=== PATIENT | female | born 1980 | race Caucasian/White ===

== ENCOUNTER 2018-04-30 10:56 | Emergency (ER) | payer MEDICAID ==
[2018-04-30] MEDS ORDERED: Ondansetron 4 MG/2 ML SDV IVPUSH ONE (11:08)
[2018-04-30] MEDS ORDERED: Sodium Chloride 0.9% 10 ML Syringe FLUSH PRN (11:08)
[2018-04-30] MEDS ORDERED: Ketorolac 30 MG/ML SDV IVPUSH ONE (11:10)
[2018-04-30] MEDS ORDERED: HYDROmorphone 0.5 MG/0.5 ML SYRINGE IVPUSH ONE ×2 (11:10→13:43)
[2018-04-30] MEDS ORDERED: Sodium Chloride 0.9% 1,000 ML IV SCH (11:15)
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
[2018-04-30 14:46] VITALS: BP 102/60
--- NOTE | 2018-05-01 11:26 | CT ---
CT abdomen and pelvis Technique: Multiple axial sections were obtained from above the dome of the diaphragm inferiorly through the pubic symphysis. Intravenous and oral contrast was not utilized. Study has been performed as a ureteral stone protocol. Findings: 1.1 cm obstructing stone seen within the distal right ureter causing severe proximal hydronephrosis. No other abnormal calcifications seen along the course of the ureters or within the kidneys. Visualized lung bases show nothing acute. Noncontrast appearance of the liver and spleen appears within normal limits. Adrenal glands show no nodule. Pancreas is within normal limits. Aorta shows no aneurysmal dilatation. No retroperitoneal adenopathy or mesenteric abnormalities are seen. No pelvic mass or adenopathy is seen. Appendix is seen and appears normal in size. Slight increased stool is seen throughout the colon. Bone window settings were reviewed which appear within normal limits for the patient's age. Impression: 1. 1.1 cm obstructing stone within the distal right ureter causing severe proximal hydronephrosis. 2. Mild increased stool throughout colon. 3. No additional abnormality is seen on noncontrast CT study of the abdomen and pelvis performed as a ureteral stone protocol. Diagnostic code #3 Agree with preliminary report issued by [employer] ([employer] preliminary report dictated on 04/30/18, 1:46 PM Central Time)
== END 2018-04-30 14:48 | disposition home or self-care (01) ==
LOC: JD.ED 10:56
DX: N13.2 Hydronephrosis with renal and ureteral calculous obstruction (principal); F43.10 Post-traumatic stress disorder, unspecified; F31.9 Bipolar disorder, unspecified; F32.9 Major depressive disorder, single episode, unspecified; Z88.5 Allergy status to narcotic agent; Z88.8 Allergy status to other drugs, medicaments and biological substances; Z79.899 Other long term (current) drug therapy
CPT/HCPCS: 36415; 74176; 80053; 81001; 83690; 84703; 85025; 87086; 96361; 96374; 96375; 96376; 99284; J1170; J1885; J2405; J7040; J7050

== ENCOUNTER 2018-07-22 16:07 | Emergency (ER) | payer MEDICAID ==
[2018-07-22] MEDS ORDERED: Sodium Chloride 0.9% 1,000 ML IV ONE (16:40)
[2018-07-22] MEDS ORDERED: Sodium Chloride 0.9% 10 ML Syringe FLUSH PRN (16:40)
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
[2018-07-22 19:04] VITALS: BP 113/74
--- NOTE | 2018-07-25 10:10 | CT ---
CT abdomen and pelvis Technique: Multiple axial sections were obtained from above the dome of the diaphragm inferiorly through the pubic symphysis. Intravenous and oral contrast not utilized. Study has been performed as a ureteral stone protocol. Comparison: Prior CT abdomen and pelvis exam of 04/30/18. Findings: Previous obstructing distal right ureteral stone is no longer seen. No abnormal calcifications are identified along the course of the ureters. Visualized lung bases are clear. Noncontrast appearance of the liver and spleen appear within normal limits. Adrenal glands show no nodule. Pancreas is within normal limits. Gallbladder contains no calcified gallstones. Kidneys show no abnormal calcifications. The aorta shows no aneurysmal dilatation. No retroperitoneal adenopathy or mesenteric abnormalities are seen. No pelvic mass or adenopathy is seen. Cyst identified within the right side of the pelvis measuring about 3.5 cm in size most likely ovarian in etiology. Appendix is seen and is normal in size. No free fluid or inflammatory change is seen. Slight increased stool seen throughout colon. Bone window settings were reviewed which appear within normal limits for the patient's age. Small fat-containing umbilical hernia is noted. Impression: 1. Previous right ureteral stone is no longer present. No renal calculi or ureteral stone is seen on current exam. 2. 3.5 cm cyst most likely ovarian in etiology within the right pelvis. 3. Other incidental findings. Diagnostic code #2 I agree with preliminary report from [facility], finalized at 07/22/18, 6:52 PM Central Time
== END 2018-07-22 18:55 | disposition home or self-care (01) ==
LOC: JD.ED 16:07 → EEVIPCON 16:07 → JD.ED 18:55
DX: N83.201 Unspecified ovarian cyst, right side (principal); Z88.5 Allergy status to narcotic agent; Z88.8 Allergy status to other drugs, medicaments and biological substances
CPT/HCPCS: 36415; 74176; 80053; 81001; 84703; 85025; 96360; 99283; J7040; J7050

== ENCOUNTER 2018-11-27 18:25 | Emergency (ER) | payer MEDICAID ==
[2018-11-27 18:37] VITALS: BP 105/76
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
[2018-11-27] MEDS ORDERED: Ketorolac 15 MG/ML SDV IVPUSH ONE (19:23)
[2018-11-27] MEDS ORDERED: Lactated Ringers 1,000 ML IV SCH (19:30)
[2018-11-27] MEDS ORDERED: Ondansetron 4 MG/2 ML SDV IVPUSH ONE (19:41)
--- NOTE | 2018-11-27 20:30 | CT ---
CT abdomen and pelvis Technique: Multiple axial sections through the abdomen were obtained from above the dome of the diaphragm inferiorly through the pubic symphysis. Intravenous and oral contrast not utilized. Study was performed as a ureteral stone protocol. Comparison: Prior renal stone CT exam of 07/22/18. Findings: Kidneys show no abnormal calcifications. No ureteral dilatation or ureteral stone is seen. Visualized lung bases are clear. Noncontrast appearance of the liver appears within normal limits. Spleen appears within normal limits. Adrenal glands show no nodule. Pancreas appears within normal limits. Gallbladder contains no calcified gallstones. Aorta shows no aneurysm. No retroperitoneal adenopathy or mesenteric abnormalities are seen. Thinning of the rectus fascia is seen with bulging of the abdominal wall at the level of the umbilicus. Slightly septated cyst is noted within the left ovary measuring 4.5 cm. Appendix is seen which is normal in size. No free fluid or inflammatory change is seen. Bone window settings were reviewed which appear within normal limits for the patient's age. Impression: 1. 4.5 cm septated cyst within the left ovary. This is an interval change from prior CT exam. Recommend follow-up ultrasound in Mar, 2019 2. No ureteral calculi, ureteral dilatation or renal calculi are seen. 3. Appendix is seen and is normal in size. 4. Other incidental findings as described above. Diagnostic code #3
== END 2018-11-27 21:15 | disposition home or self-care (01) ==
LOC: JD.ED 18:25
DX: S39.011A Strain of muscle, fascia and tendon of abdomen, initial encounter (principal); S29.011A Strain of muscle and tendon of front wall of thorax, initial encounter; Z88.5 Allergy status to narcotic agent; Z88.8 Allergy status to other drugs, medicaments and biological substances; X58.XXXA Exposure to other specified factors, initial encounter
CPT/HCPCS: 36415; 74176; 80048; 81001; 81025; 85007; 85027; 96361; 96374; 96375; 99284; J1885; J2405; J7120

== ENCOUNTER 2021-12-15 13:28 | Emergency (ER) | payer MEDICAID, SELFPAY ==
[2021-12-15 14:21] VITALS: BP 132/96; PULSE 111
[2021-12-15] MEDS ORDERED: Sodium Chloride 0.9% 1,000 ML IV STA (16:02)
[2021-12-15] MEDS ORDERED: Ondansetron 4 MG/2 ML SDV IVPUSH ONE (16:02)
[2021-12-15] MEDS ORDERED: Ketorolac 30 MG/ML SDV IVPUSH ONE (16:02)
[2021-12-15] MEDS ORDERED: diphenhydrAMINE 50 MG/ML SDV IVPUSH ONE (16:03)
[2021-12-15] MEDS ORDERED: HYDROmorphone 0.5 MG/0.5 ML Syringe IVPUSH ONE (16:04)
[2021-12-15] MEDS ORDERED: Acetaminophen 325 MG Tab PO ONE (19:47)
== END 2021-12-15 20:40 | disposition home or self-care (01) ==
LOC: JD.ED 13:28
DX: G43.909 Migraine, unspecified, not intractable, without status migrainosus (principal); Z88.5 Allergy status to narcotic agent; Z88.8 Allergy status to other drugs, medicaments and biological substances
CPT/HCPCS: 96374; 96375; 99283; J1170; J1200; J1885; J2405; J7030

== ENCOUNTER 2022-07-27 11:07 | Emergency (ER) | payer MEDICAID, SELFPAY ==
[2022-07-27] MEDS ORDERED: Sodium Chloride 0.9% 10 ML Syringe FLUSH PRN (11:59)
[2022-07-27] MEDS ORDERED: Sodium Chloride 0.9% 1,000 ML IV ONE (11:59)
[2022-07-27 13:31] LABS: ESTIMATED GFR 113 mL/min (>60)
[2022-07-27 15:44] VITALS: BP 128/92; PULSE 72
== END 2022-07-27 15:56 | disposition home or self-care (01) ==
LOC: JD.ED 11:07
DX: N93.9 Abnormal uterine and vaginal bleeding, unspecified (principal); Z88.6 Allergy status to analgesic agent; Z88.8 Allergy status to other drugs, medicaments and biological substances; Z79.899 Other long term (current) drug therapy
CPT/HCPCS: 36415; 76856; 80053; 81001; 84703; 85025; 86140; 96360; 99284; A9270; J3490; J7030

== ENCOUNTER 2023-01-21 20:19 | Emergency (ER) | payer MEDICAID ==
[2023-01-21 20:37] VITALS: BP 127/87; PULSE 100
[2023-01-21] MEDS ORDERED: HYDROmorphone 1 MG/ML Syringe IVPUSH ONE (22:47)
[2023-01-21] MEDS ORDERED: Metoclopramide 10 MG/2 ML SDV IVPUSH ONE (22:47)
[2023-01-21] MEDS ORDERED: Sodium Chloride 0.9% 10 ML Syringe FLUSH PRN (22:47)
[2023-01-21] MEDS ORDERED: diphenhydrAMINE 50 MG/ML SDV IVPUSH ONE (22:48)
[2023-01-21] MEDS ORDERED: Dexamethasone 10 MG/ML SDV IVPUSH ONE (22:48)
== END 2023-01-22 00:23 | disposition home or self-care (01) ==
LOC: JD.ED 20:19
DX: M47.816 Spondylosis without myelopathy or radiculopathy, lumbar region (principal); M46.1 Sacroiliitis, not elsewhere classified; Z88.5 Allergy status to narcotic agent; Z88.8 Allergy status to other drugs, medicaments and biological substances; Z79.899 Other long term (current) drug therapy
CPT/HCPCS: 96374; 96375; 99283; J1100; J1170; J1200; J2765; J3490; 99284

== ENCOUNTER 2023-01-31 19:53 | Emergency (ER) | payer MEDICAID ==
[2023-01-31] MEDS ORDERED: Ondansetron 4 MG/2 ML SDV IVPUSH ONE (20:34)
[2023-01-31] MEDS ORDERED: HYDROmorphone 0.5 MG/0.5 ML Syringe IVPUSH ONE (20:34)
[2023-01-31] MEDS ORDERED: Sodium Chloride 0.9% 1,000 ML IV ONE (20:34)
[2023-01-31 20:53] LABS: ESTIMATED GFR 83 mL/min (>60)
[2023-01-31] MEDS ORDERED: Ondansetron 4 MG Tab.DIS PO ONE (23:34)
[2023-01-31 23:58] VITALS: BP 129/69; PULSE 78
== END 2023-01-31 23:57 | disposition home or self-care (01) ==
LOC: JD.ED 19:53
DX: N12 Tubulo-interstitial nephritis, not specified as acute or chronic (principal); Z88.5 Allergy status to narcotic agent; Z88.8 Allergy status to other drugs, medicaments and biological substances; Z79.899 Other long term (current) drug therapy
CPT/HCPCS: 36415; 74176; 80053; 81001; 85025; 86140; 96361; 96374; 96375; 99284; A9270; J1170; J2405; J7030

== ENCOUNTER 2023-02-08 18:29 | Emergency (ER) | payer MEDICAID ==
[2023-02-08] MEDS ORDERED: Sodium Chloride 0.9% 10 ML Syringe FLUSH PRN (19:11)
[2023-02-08] MEDS ORDERED: HYDROmorphone 0.5 MG/0.5 ML Syringe IVPUSH ONE (19:12)
[2023-02-08] MEDS ORDERED: Ondansetron 4 MG/2 ML SDV IVPUSH ONE (19:12)
[2023-02-08] MEDS ORDERED: Ketorolac 30 MG/ML SDV IVPUSH ONE (19:12)
[2023-02-08 20:45] LABS: ESTIMATED GFR 95 mL/min (>60)
[2023-02-08 21:35] VITALS: BP 128/67; PULSE 79
== END 2023-02-08 21:33 | disposition home or self-care (01) ==
LOC: JD.ED 18:29
DX: M54.50 Low back pain, unspecified (principal); G89.29 Other chronic pain; Z88.5 Allergy status to narcotic agent; Z88.8 Allergy status to other drugs, medicaments and biological substances; Z79.899 Other long term (current) drug therapy
CPT/HCPCS: 36415; 80053; 85025; 86140; 96374; 96375; 99284; J1170; J1885; J2405; J3490

== ENCOUNTER 2023-03-11 19:22 | Emergency (ER) | payer MEDICAID ==
[2023-03-11] MEDS ORDERED: Ondansetron 4 MG Tab.DIS PO ONE (19:54)
[2023-03-11] MEDS ORDERED: Acetaminophen/HYDROcodone 325-10 MG Tab PO ONE (19:54)
[2023-03-11 22:03] VITALS: BP 122/74; PULSE 88
== END 2023-03-11 21:45 | disposition home health service (06) ==
LOC: JD.ED 19:22
DX: S63.502A Unspecified sprain of left wrist, initial encounter (principal); S63.602A Unspecified sprain of left thumb, initial encounter; Z88.5 Allergy status to narcotic agent; Z88.8 Allergy status to other drugs, medicaments and biological substances; W01.0XXA Fall on same level from slipping, tripping and stumbling without subsequent striking against object, initial encounter
CPT/HCPCS: 73110; 73130; 99283; A9270; 99282

== ENCOUNTER 2024-10-23 15:58 | Emergency (ER) | payer MEDICAID ==
[2024-10-23] MEDS: Ketorolac 60 MG/2 ML SDV IM ONE (17:09)
[2024-10-23] MEDS: HYDROmorphone 1 MG/ML Syringe IM ONE (17:10)
[2024-10-23] MEDS: Ondansetron 4 MG Tab.DIS PO ONE (17:11)
[2024-10-23] MEDS ORDERED: Sodium Chloride 0.9% 10 ML Syringe FLUSH PRN (17:22)
[2024-10-23] MEDS: HYDROmorphone 0.5 MG/0.5 ML Syringe IVPUSH ONE (17:28)
[2024-10-23 19:31] VITALS: BP 129/95; PULSE 92
== END 2024-10-23 18:25 | disposition home or self-care (01) ==
LOC: JD.ED 15:58
DX: M54.41 Lumbago with sciatica, right side (principal); Z88.5 Allergy status to narcotic agent; Z88.8 Allergy status to other drugs, medicaments and biological substances; Z79.899 Other long term (current) drug therapy
CPT/HCPCS: 96372; 96374; 99283; A9270; J1171; J1885

== ENCOUNTER 2025-08-28 18:09 | Emergency (ER) | payer SELFPAY ==
[2025-08-28 18:52] LABS: APPEARANCE,URINE CLOUDY (Clear); GLUCOSE,URINE NEGATIVE (Negative); OCCULT BLOOD,URINE 3+ (Negative)
[2025-08-28 19:26] LABS: SQUAMOUS EPITHELIAL CELLS,UR 0-5 /hpf (0-5)
[2025-08-28 20:37] VITALS: BP 132/96; PULSE 99
== END 2025-08-28 19:25 | disposition home or self-care (01) ==
LOC: JD.ED 18:09
DX: N39.0 Urinary tract infection, site not specified (principal); Z79.899 Other long term (current) drug therapy; Z88.5 Allergy status to narcotic agent; Z88.8 Allergy status to other drugs, medicaments and biological substances
CPT/HCPCS: 81001; 87086; 87088; 87186; 99283